=== PATIENT | female | born 1970 | race Caucasian/White ===

== ENCOUNTER 2019-04-13 11:45 | Outpatient (CLI) | payer OTHER ==
[2019-04-13 13:05] LABS: Blood Urea Nitrogen 10 mg/dL (7-17)
--- NOTE | 2019-04-13 15:57 | Cat Scan Report ---
CT abdomen pelvis w con INDICATION: VAGINAL MASS,PELVIC PAIN. TECHNIQUE: All CT scans at this location are performed using the following dose modulation technique: Automated exposure control. CONTRAST: Omnipaque 300, 100 cc IV injection. COMPARISON: None available. CT ABDOMEN: The parenchymal organs are unremarkable in appearance other than mild fatty infiltration of the liver and probable small right renal cyst. Negative for abdominal mass, fluid or inflammation. The bowel is not dilated or thickened. CT PELVIS: 2 larger fluid density lesions at the cervix are present with the largest measuring 2.8 cm (series 4, image 85). An additional similar-appearing lesion at the lower uterine segment measures 2 .4 cm. A cystic appearing lesion at the right adnexa measures 5.4 cm. Negative for additional pelvic mass, fluid or inflammation. The appendix is normal. IMPRESSION: 1. Suspect large nabothian cysts at the level the cervix. 2. Benign-appearing cyst lower uterine segment. 3. 5.4 cm cystic lesion right adnexa. Further evaluation is recommended with ultrasound. Signer Name: Kendall Jeter MD Signed: 04/13/2019 3:52 PM Workstation Name: [id number]
== END 2019-04-13 11:46 | disposition home or self-care (01) ==
LOC: CT 11:45
PROVIDERS: ATTEND Obstetrics & Gynecology
DX: N85.8 Other specified noninflammatory disorders of uterus (principal); N89.8 Other specified noninflammatory disorders of vagina; R10.2 Pelvic and perineal pain; Z90.710 Acquired absence of both cervix and uterus
CPT/HCPCS: 36415; 74177; 82565; 84520; Q9967